=== PATIENT | female | born 1930 | race Caucasian/White ===

== ENCOUNTER 2017-08-22 14:14 | Inpatient (IN) ==
[2017-08-22] MEDS ORDERED: Naloxone 0.4 MG/ML INJ IVP PRN ×2 (21:40→21:41)
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
[2017-08-22 22:28] LABS: Basophils # 0.1 K/mcL (0.0-0.2); Basophils % 0.4 %; Eosinophils % 0.3 %; Hematocrit 41.4 % (35.3-44.9); Hemoglobin 13.3 g/dL (11.5-15.4); Immature Granulocytes % 0.3 % (0-4); Lymphocytes # 2.4 K/mcL (0.6-4.6); Lymphocytes % 19.2 %; Mean Corpuscular HGB Conc 32.1 g/dL (31.6-35.5); Mean Corpuscular Hemoglobin 28.4 pg (28.0-33.3); Mean Corpuscular Volume 88.5 fL (83.0-100.0); Mean Platelet Volume 9.9 fL (9.4-12.4); Monocytes # 0.7 K/mcL (0.0-1.3); Monocytes % 5.5 %; Neutrophils # 9.3 K/mcL (1.6-8.9); Platelet Count 188 K/mcL (140-400); Red Blood Count 4.68 M/mcL (3.82-4.97); Red Cell Distribution Width 13.2 % (11.5-14.5); Segmented Neutrophils % 74.3 %
[2017-08-22 22:34] LABS: INR 1.1; Prothrombin Time 11.9 Seconds (9.4-12.1)
[2017-08-22 22:48] LABS: Alanine Aminotransferase 159 Units/L (7-52); Albumin 3.9 g/dL (3.5-5.7); Albumin/Globulin Ratio 1.4 (1.1-2.2); Alkaline Phosphatase 110 Units/L (34-104); Aspartate Amino Transferase 198 Units/L (13-39); BUN/Creatinine Ratio 23 (6-26); Bilirubin,Total 1.5 mg/dL (0.3-1.0); Blood Urea Nitrogen 17 mg/dL (8-23); Calcium 9.4 mg/dL (8.6-10.3); Carbon Dioxide 29 mEq/L (23-29); Chloride 103 mEq/L (98-107); Globulin 2.8 g/dL (2.4-3.5); Glucose 129 mg/dL (70-105); Osmolality,Calculated 289 (280-300); Potassium 3.5 mEq/L (3.5-5.1); Sodium 138 mEq/L (136-145); Total Protein 6.7 g/dL (6.4-8.9); eGFR For African Americans > 60 (> 60); eGFR For Non-African Americans > 60 (> 60)
[2017-08-22] MEDS: *HR* HYDROcodone/Acet 5/325 mg TABLET PO PRN (23:39)
[2017-08-22] MEDS: *HR* Heparin 5,000 UNIT/ML VIAL SQ SCH (23:41)
[2017-08-23 00:40] LABS: Bilirubin,Urine Negative (Negative); Blood,Urine Large (Negative); Clarity,Urine Clear (Clear); Color,Urine Yellow (Yellow); Glucose,Urine (UA) Normal (Normal); Ketones,Urine Negative (Negative); Leukocyte Esterase,Urine Negative (Negative); Nitrite,Urine Negative (Negative); Protein,Urine 30 mg/dL (Neg-Trace); Specific Gravity,Urine 1.022 (1.010-1.025); Urobilinogen,Urine Normal (Normal)
[2017-08-23 00:42] LABS: Bacteria,Urine None Seen per hpf (None-Few); Hyaline Casts,Urine None Seen per lpf (None-Few); RBC,Urine TNTC per hpf (0-3); Squamous Epithelial Cell,Urine Many per lpf (None-Few)
[2017-08-23 02:24] LABS: BUN/Creatinine Ratio 27 (6-26); Blood Urea Nitrogen 17 mg/dL (8-23); Calcium 9.1 mg/dL (8.6-10.3); Carbon Dioxide 27 mEq/L (23-29); Chloride 104 mEq/L (98-107); Glucose 121 mg/dL (70-105); Osmolality,Calculated 287 (280-300); Potassium 3.8 mEq/L (3.5-5.1); Sodium 137 mEq/L (136-145); eGFR For African Americans > 60 (> 60); eGFR For Non-African Americans > 60 (> 60)
[2017-08-23 02:57] LABS: INR 1.1; Prothrombin Time 12.2 Seconds (9.4-12.1)
[2017-08-23 03:08] LABS: Basophils # 0.1 K/mcL (0.0-0.2); Basophils % 0.6 %; Eosinophils # 0.2 K/mcL (0.0-0.6); Eosinophils % 1.3 %; Hematocrit 38.9 % (35.3-44.9); Hemoglobin 12.6 g/dL (11.5-15.4); Immature Granulocytes % 0.7 % (0-4); Lymphocytes # 2.8 K/mcL (0.6-4.6); Lymphocytes % 22.5 %; Mean Corpuscular HGB Conc 32.4 g/dL (31.6-35.5); Mean Corpuscular Hemoglobin 28.6 pg (28.0-33.3); Mean Corpuscular Volume 88.2 fL (83.0-100.0); Mean Platelet Volume 10.3 fL (9.4-12.4); Monocytes # 0.8 K/mcL (0.0-1.3); Monocytes % 6.3 %; Neutrophils # 8.6 K/mcL (1.6-8.9); Platelet Count 193 K/mcL (140-400); Red Blood Count 4.41 M/mcL (3.82-4.97); Red Cell Distribution Width 13.1 % (11.5-14.5); Segmented Neutrophils % 68.6 %
[2017-08-23] MEDS: *HR* Heparin 5,000 UNIT/ML VIAL SQ SCH ×2 (05:26→12:55)
[2017-08-23] MEDS: *HR* HYDROcodone/Acet 5/325 mg TABLET PO PRN ×2 (05:27→12:10)
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
[2017-08-23] MEDS ORDERED: hydroCHLOROthiazide 25 MG TABLET PO SCH (09:00)
--- NOTE | 2017-08-23 09:37 | Internal Med Progress Note ---
Date of Encounter: 08/23/17 Time of Encounter: 08:50 - Assessment and plan (1) Femoral fracture Current Visit: Yes Status: Acute Assessment and plan: Pt with acute hip fracture. To go to OR today for repair. I reviewed EKG - nonspecific changes. Pt moderate risk for low risk procedure. Qualifiers: Encounter type: subsequent encounter Femur location: head Fracture type: closed Laterality: right Fracture healing: with routine healing Qualified Code(s): S72.051D - Unspecified fracture of head of right femur, subsequent encounter for closed fracture with routine healing (2) Dementia Current Visit: Yes Status: Acute Assessment and plan: Continue previous meds. Supportive care. Qualifiers: Dementia type: Alzheimer's disease Alzheimer's disease onset: late-onset Dementia behavioral disturbance: without behavioral disturbance Qualified Code (s): G30.1 - Alzheimer's disease with late onset; F02.80 - Dementia in other diseases classified elsewhere without behavioral disturbance; F02.80 - Dementia in other diseases classified elsewhere without behavioral disturbance; F02.80 - Dementia in other diseases classified elsewhere without behavioral disturbance (3) Hypertension Current Visit: Yes Status: Acute Assessment and plan: Resume home antihypertensives Qualifiers: Hypertension type: essential hypertension Qualified Code(s): I10 - Essential (primary) hypertension (4) DVT prophylaxis Current Visit: Yes Status: Acute Assessment and plan: Heparin subcutaneous - Time Spent With Patient Total time spent is greater than 50% in coordination of care (as documented) at patient's floor/unit and/or counseling patient: - Subjective Interval history: Ms Jerry is currently admitted for R hip fracture. She is to go to OR today. She remains moderate to high risk due to potential for worsening clinical status. Ms Jerry is very agitated. She is trying to get out of bed. No fever. No CP or SOB. - Constitutional Vitals: Temp Pulse Resp BP Pulse Ox 98.4 F 81 16 145/81 93 08/23/17 06:56 08/23/17 06:56 08/23/17 06:56 08/23/17 06:56 08/23/17 06:56 General appearance: Present: A&O X 1 - Head Head exam: Present: normocephalic - Eye Eye exam: Present: conjuntiva pink - ENT ENT exam: Present: mucous membranes dry - Respiratory Respiratory exam: Present: CTAB. Absent: rales, rhonchi, wheezes - Cardiovascular Cardiovascular exam: Present: RRR. Absent: tachycardia - GI/Abdominal GI/Abdominal exam: Present: soft. Absent: tenderness - Extremities Exam Extremities exam: Present: warm - Neurological Exam Neurological exam: Present: alert. Absent: facial droop, speech deficit - Skin Skin exam: Present: dry, warm Internal Medicine: Result - Labs CBC & Chem 7: 08/23/17 01:45 08/23/17 01:45 Labs: Short CBC 08/22/17 08/23/17 Range/Units 22:16 01:45 WBC 12.5 H 12.5 H (4.3-11.1) K/mcL Hgb 13.3 12.6 (11.5-15.4) g/dL Hct 41.4 38.9 (35.3-44.9) % Plt Count 188 193 (140-400) K/mcL Neutrophils # 9.3 H 8.6 (1.6-8.9) K/mcL BMP 08/22/17 08/23/17 22:16 01:45 Sodium 138 137 Potassium 3.5 3.8 Chloride 103 104 Carbon Dioxide 29 27 BUN 17 17 Creatinine 0.74 0.64 Glucose 129 H 121 H Calcium 9.4 9.1 Liver Function 08/22/17 Range/Units 22:16 Total Bilirubin 1.5 H (0.3-1.0) mg/dL AST 198 H (13-39) Units/L ALT 159 H (7-52) Units/L Alkaline Phosphatase 110 H (34-104) Units/L Albumin 3.9 (3.5-5.7) g/dL Urine 08/23/17 Range/Units 00:12 Urine Color Yellow (Yellow) Urine Clarity Clear (Clear) Urine pH 7.0 (5.0-8.0) pH Units Ur Specific [place] 1.022 (1.010-1.025) Urine Protein 30 H (Neg-Trace) mg/dL Urine Glucose (UA) Normal (Normal) mg/dL - ABG Interpretation ABG results: PT/INR, D-dimer PT 12.2 Seconds (9.4-12.1) H 08/23/17 01:45 Consult Discharge Plan - Plan Referrals: NONE,PCP [Primary Care Provider] -
--- NOTE | 2017-08-23 13:25 | Anesthesia Evaluation PreOp ---
Date of Encounter: 08/23/17 Time of Encounter: 14:00 - Past History Planned Operation: R-Braulio Hip re: R-Femoral Head Fx Cardiac History: HTN Pulmonary History: Denies Any Significant HX MANAGER GYN History: Other (AlzheimersDementia) Other Medical History: Thyroid, Other (Colon Cancer s/p small bowel resection, partial gastrectomy. Recent Lupus diagnosis that pt reportedly wont allow to be treated.) Anesthesia History: No Prior Anesthetic Complications, Past Anesthesia (Small bowl resection re: Colon Ca, Letty) : No Test: Negative Drug use: none Medications and Allergies Acetaminophen [Tylenol] 650 mg PO Q6HR PRN 08/22/17 [History] DiphenhydraMINE [Benadryl] 25 mg PO HS 08/22/17 [History] Donepezil [Aricept] 10 mg PO HS 08/22/17 [History] Potassium Chloride [K-Tab ER] 20 meq PO QDPC 08/22/17 [History] Quetiapine Fumarate [SEROquel] 12.5 mg PO 1600 08/22/17 [History] Quetiapine Fumarate [SEROquel] 25 mg PO BID 08/22/17 [History] hydroCHLOROthiazide [Hydrochlorothiazide] 25 mg PO DAILY 08/22/17 [History] 3 Allergy/AdvReac Type Severity Reaction Status Date / Time divalproex sodium AdvReac See Verified 08/22/17 16:49 [From Depakote] Comments - Meds/Allergy Pre-op Review Medications Reviewed: Yes Allergies Reviewed: Yes Beta Blockers on Current Med List: No Anesthesia Results - Labs 08/23/17 01:45 08/23/17 01:45 Laboratory Tests 08/23/17 08/23/17 01:45 01:45 PT 12.2 H INR 1.1 Sodium 137 Potassium 3.8 Chloride 104 Carbon Dioxide 27 BUN 17 Creatinine 0.64 Est GFR (Non-Af Amer) > 60 Glucose 121 H - Imaging EKG: image reviewed (86bpm SR, non-specific T-wave abnormality) Anesthesia Exam Vital Signs Temp Pulse Resp BP Pulse Ox 08/23/17 11:26 97.9 F 89 17 151/72 92 08/23/17 06:56 98.4 F 81 16 145/81 93 08/23/17 04:48 97.8 F 78 18 130/72 95 08/22/17 23:38 97.9 F 88 18 135/77 93 08/22/17 19:55 98.9 F 92 16 154/83 93 08/22/17 16:31 98.4 F 98 16 165/81 98 Intake and Output 08/22/17 08/23/17 08/23/17 23:59 07:59 15:59 Intake Total 0 / 0 0 / 0 Output Total 825 / 825 300 / 300 500 / 500 Balance -825 / -825 -300 / -300 -500 / -500 Intake: Oral 0 / 0 0 / 0 Output: Catheter 825 / 825 300 / 300 500 / 500 Urethral (Senior) 500 / 500 Other: Weight 47 kg 48.2 kg Patient Weight 08/23/17 23:59 Weight 48.2 kg Height: 5'5" Weight: 106# BMI = 17.7 NPO (# of Hours): MNOc - HEENT Pupil (Motor): Pupils equal, EOMI Mallampati: II Teeth: Normal Oral Opening: Greater than 3 - MANAGER GYN LOC: Oriented MANAGER GYN Motor: Normal RUE, Normal LUE, Normal RLE, Normal LLE, Normal Face MANAGER GYN Sensory: Normal: RUE, LUE, RLE, LLE, Face - Cardiac Rhythm: Regular Murmur: None JVD: No - Pulmonary Breath Sounds: bilateral Clear Respiratory Effort: Symmetrical Anesthesia Assess/Plan ASA Score: 3 (Dementia,) Modified Rosemarie Scale for Level of Consciousness: Cooperative, oriented, and tranquil Anesthetic Plan: General Monitoring Plan: Standard Monitors Recovery Plan: PACU Anes Supervising Prov Stmt: Pt seen/evaluated, R&B discussed, questions answered and consent obtained from Legal Guardian - MD Fernanda Legal Guardian- Kiana Livingston [phone]
[2017-08-23] MEDS ORDERED: Vancomycin 1,000 MG VIAL ONE (14:12)
[2017-08-23] MEDS ORDERED: Ethanol\\Acetic Acid\\Na Ace\\Ben 1,000 ML IRRIG.SOLN IR ONE (14:19)
[2017-08-23] MEDS ORDERED: Morphine Sulfate/PF 5mg/10mL Vial ONE (14:54)
[2017-08-23] MEDS ORDERED: *HR* FentaNYL (PF) 100 MCG/2 ML VIAL ONE ×3 (15:19→17:09)
[2017-08-23] MEDS ORDERED: *HR* PHENYLEPHRINE 1,000 MCG/10 ML SYRINGE IVP ONE (15:20)
[2017-08-23] MEDS ORDERED: *HR* Etomidate 40 MG/20 ML VIAL IVP ONE (15:43)
[2017-08-23] MEDS ORDERED: *HR* Succinylcholine 200 MG/10 ML VIAL IVP ONE (15:47)
[2017-08-23] MEDS ORDERED: Lidocaine -MPF 2% 2 ML VIAL ONE (15:47)
[2017-08-23] MEDS ORDERED: *HR* Rocuronium Bromide 50 MG/5 ML VIAL ONE (16:01)
[2017-08-23] MEDS ORDERED: *HR* OxyCODONE Immed Rel 5 MG TABLET PO PRN ×2 (16:37→18:54)
[2017-08-23] MEDS ORDERED: *HR* Labetalol 100 MG/20 ML MDV IVP PRN ×2 (16:37→18:54)
[2017-08-23] MEDS ORDERED: EPHEDrine 50 MG/ML VIAL ONE (16:38)
[2017-08-23] MEDS ORDERED: MORPHINE SUL Oral CONC 10 MG/0.5 ML ORAL.SYG SL SCH (16:45)
[2017-08-23] MEDS ORDERED: Neostigmine Methylsulfate 3 MG/3 ML SYRINGE ONE (16:48)
[2017-08-23] MEDS ORDERED: Esmolol 100 MG/10 ML VIAL IVP ONE (17:05)
--- NOTE | 2017-08-23 17:36 | Orthopedic Operative Note ---
Date of procedure: 08/23/17 Procedure: OPERATIVE REPORT DATE OF PROCEDURE: 08/23/2017 SURGEON: Terrence Zepeda MD ACCOUNT ASSOCIATE(S): There were no assistants PREOPERATIVE DIAGNOSIS: Right displaced femoral neck fracture POSTOPERATIVE DIAGNOSIS: Right displaced femoral neck fracture PROCEDURE: Right hip hemiarthroplasty ANESTHESIA: Gen. anesthesia PREOPERATIVE ANTIBIOTICS: 2 g of Ancef ESTIMATED BLOOD LOSS: 100 milliliters SPECIMENS: Right femoral head IMPLANTS: Biomet Echo Fracture stem size 9 with standard offset; 46 Vipolar Head ; 28 standard Taper PREOPERATIVE NOTE AND INDICATIONS: This patient is an 87-year-old female with a right displaced femoral neck fracture. Recommendation was for the above procedure in order to achieve pain relief and help facilitate nursing care The surgical plan was discussed with the power of attorney law clerk. The risks, benefits , alternatives, and potential complications of this procedure were discussed with the patient including injury to veins, arteries, nerves, tendons, ligaments , and bone. Also discussed were the risks of infection, bleeding, pain, blood clots, the possible need for a blood transfusion, the possible need for further procedures, heart attack, stroke, and . Additional risks include anesthetic dislocation, fracture, prosthetic infection, and the need for further procedures. All of this was explained in simple terms, and the power of attorney law clerk verbalized understanding and wished to proceed. Consent was given to proceed with surgery. PROCEDURE: The patient was seen in the preoperative holding area where the identify and the consent were confirmed. The right hip was marked. Final questions were answered. The patient was brought back to the operating room. A huddle was performed with the patient and all vital surgical team members confirming patient identity, the correct procedure, and the correct operative site. General anesthesia was administered. The patient was placed supine on the operating room table and then placed in the left lateral decubitus position. The axillary roll was placed and all bony prominences were padded. The right lower extremity was prepped and draped in the usual sterile fashion. A surgical time out was performed immediately preceding the incision with all personnel in the operating room to confirm patient identity, the correct operative site and extremity, correct radiographic studies, availability of appropriate surgical equipment, and agreement on the planned procedure. A 15 cm longitudinal curvilinear incision was made and dissection proceeded through the subcutaneous tissue using a Bovie for electrocautery. The fascia was encountered and incised splitting the fibers of the gluteus malia proximally. The Charnley retractor was placed. A Cobra was placed under the gluteus medius and the piriformis was taken down and tagged. While internally rotating the femur the short external rotators and the capsule was taken down in 1 sleeve. This exposed the fracture and an osteotomy was made 1 cm above the lesser trochanter. The femoral head was removed with a corkscrew. Pulvinar and the round ligament were debrided. The cartilage of the acetabulum was intact. The femoral head was sized and the 46 mm sizer fit appropriately. The femoral shaft was elevated and a box osteotome was used to lateralize. The canal finder was used and shaft reaming went up to a size 9. Broaching commenced and the 9 broach fit nicely and had good rotational stability. The trial head and neck were placed and the hip was articulated and felt to be accurate length. The hip was stable through a functional range of motion. The hip was disarticulated and the trial components were removed. The hip was washed with 3 L of saline. The definitive stem was tapped into position, and the definitive head was impacted onto the Lane taper. The hip was articulated and noted to be stable through a functional range of motion. After final irrigation with Irricept and Bactisure, 1 g of vancomycin powder was placed into the hip joint and the capsule was closed with FiberWire stitches through drill holes in the greater trochanter and the piriformis was repaired to the gluteus medius insertion. The Charnley retractor was removed and the wound was irrigated and the fascia closed with 0 Fiberwire and 0 Vicryl stitches. The skin was closed with a combination of 0 Vicryl, 3-0 Vicryl, and angelina. A sterile honeycomb dressing was applied. The patient was placed supine in her hospital bed. The instrument, sponge, and needle counts were correct after wound closure. POST OPERATIVE PLAN: Weight Bearing: Weightbearing as tolerated to bilateral lower extremities DVT Prophylaxis: Aspirin 325 mg by mouth twice a day Activity: Activities as tolerated with the assistance of therapy Wound Care: Keep the dressing clean, dry, and intact. Pain Control: Per the hospitalist Perioperative antibiotic prophylaxis: 2 g of Ancef 2 doses Social work for discharge planning Follow Up: 2 weeks Was there an dental front office assistant present: No Estimated blood loss (cc): 100
[2017-08-23] MEDS ORDERED: Haloperidol Lactate 5 MG/ML VIAL IVP ONE (18:15)
[2017-08-23] MEDS ORDERED: Ketorolac 30 MG/ML VIAL IVP ONE (18:16)
[2017-08-23] MEDS ORDERED: Ringers Solution, Lactated 1,000 ML ONE (18:22)
[2017-08-23] MEDS ORDERED: Acetaminophen IV 1,000 MG/100 ML INFUS..BTL IVPB ONE (18:24)
[2017-08-23] MEDS ORDERED: Naloxone 0.4 MG/ML INJ IVP PRN (18:54)
[2017-08-23] MEDS ORDERED: MORPHINE SUL Oral CONC 10 MG/0.5 ML ORAL.SYG SL PRN (18:54)
--- NOTE | 2017-08-23 19:17 | Anesthesia Evaluation Post Op ---
Date of Encounter: 08/23/17 Time of Encounter: 18:44 - Vital Signs Vital Signs: Last Vital Signs Temp 99.7 F H 08/23/17 18:55 Pulse 117 08/23/17 18:55 Resp 18 08/23/17 18:55 BP 105/63 08/23/17 18:55 Pulse Ox 95 08/23/17 18:55 - Lungs Lungs: Clear Ascult./Percussion - Airway Airway: Non-obstructed - Cardiovascular Regular Rate, Baseline Rhythm - Mental Status Mental Status: Confused, Baseline Status - Pain Pain Scale used: Unable to assess - Nausea Vomiting Nausea Vomiting: Not Present - Hydration Hydration: NPO - Discharge PostOp Status: Transfer Patient to floor
[2017-08-23] MEDS: Aspirin Enteric Coated 325 MG Tablet PO SCH (22:28)
[2017-08-23] MEDS: CeFAZolin Pre 2,000 MG/100 ML 2,000 MG/100 ML BAG IVPB SCH (23:42)
[2017-08-24 02:33] LABS: Hematocrit 34.5 % (35.3-44.9); Mean Corpuscular HGB Conc 31.9 g/dL (31.6-35.5); Mean Corpuscular Hemoglobin 28.5 pg (28.0-33.3); Mean Corpuscular Volume 89.4 fL (83.0-100.0); Mean Platelet Volume 10.8 fL (9.4-12.4); Platelet Count 169 K/mcL (140-400); Red Blood Count 3.86 M/mcL (3.82-4.97); Red Cell Distribution Width 13.2 % (11.5-14.5)
[2017-08-24 02:55] LABS: BUN/Creatinine Ratio 20 (6-26); Blood Urea Nitrogen 20 mg/dL (8-23); Calcium 8.5 mg/dL (8.6-10.3); Carbon Dioxide 28 mEq/L (23-29); Chloride 103 mEq/L (98-107); Glucose 111 mg/dL (70-105); Osmolality,Calculated 291 (280-300); Potassium 4.2 mEq/L (3.5-5.1); Sodium 139 mEq/L (136-145); eGFR For African Americans > 60 (> 60); eGFR For Non-African Americans 53 (> 60)
[2017-08-24] MEDS: *HR* HYDROcodone/Acet 5/325 mg TABLET PO PRN ×3 (03:22→23:50)
[2017-08-24] MEDS: Aspirin Enteric Coated 325 MG Tablet PO SCH ×2 (07:26→21:28)
[2017-08-24] MEDS: hydroCHLOROthiazide 25 MG TABLET PO SCH (07:26)
[2017-08-24] MEDS: CeFAZolin Pre 2,000 MG/100 ML 2,000 MG/100 ML BAG IVPB SCH (07:26)
--- NOTE | 2017-08-24 15:54 | Internal Med Progress Note ---
Date of Encounter: 08/24/17 Time of Encounter: 15:52 - Assessment and plan (1) Femoral fracture Current Visit: Yes Status: Acute Assessment and plan: Right femoral neck fracture status post Right hip hemiarthroplasty Followed by orthopedic surgery ECF placement in the morning if stable Qualifiers: Encounter type: subsequent encounter Femur location: head Fracture type: closed Laterality: right Fracture healing: with routine healing Qualified Code(s): S72.051D - Unspecified fracture of head of right femur, subsequent encounter for closed fracture with routine healing (2) Dementia Current Visit: Yes Status: Acute Assessment and plan: Continue previous meds. Supportive care. Qualifiers: Dementia type: Alzheimer's disease Alzheimer's disease onset: late-onset Dementia behavioral disturbance: without behavioral disturbance Qualified Code (s): G30.1 - Alzheimer's disease with late onset; F02.80 - Dementia in other diseases classified elsewhere without behavioral disturbance; F02.80 - Dementia in other diseases classified elsewhere without behavioral disturbance; F02.80 - Dementia in other diseases classified elsewhere without behavioral disturbance (3) Hypertension Current Visit: Yes Status: Acute Assessment and plan: Continue hydrochlorothiazide Qualifiers: Hypertension type: essential hypertension Qualified Code(s): I10 - Essential (primary) hypertension (4) DVT prophylaxis Current Visit: Yes Status: Acute Assessment and plan: Aspirin twice a day (5) Transaminitis Current Visit: Yes Status: Acute Assessment and plan: Recheck LFTs in the morning Order ultrasound (6) Acute blood loss as cause of postoperative anemia Current Visit: Yes Status: Acute Assessment and plan: Recheck in the morning Start omeprazole and order Hemoccult - Time Spent With Patient Total time spent is greater than 50% in coordination of care (as documented) at patient's floor/unit and/or counseling patient: - Subjective Interval history: demented, unable to complete review of systems, appears to be in no distress, denies any pain - Constitutional Vitals: Temp Pulse Resp BP Pulse Ox 98.5 F 93 16 95/59 96 08/24/17 11:00 08/24/17 11:00 08/24/17 11:00 08/24/17 11:00 08/24/17 11:00 General appearance: Present: A&O X 1 - Head Head exam: Present: atraumatic, normocephalic - Eye Eye exam: Present: PERRL, conjuntiva pink, sclera anicteric Pupils: Present: PERRL - Neck Neck exam general surgery: Present: supple, trachea midline. Absent: lymphadenopathy - Respiratory Respiratory exam: Present: CTAB. Absent: accessory muscle use, rales, rhonchi, wheezes - Cardiovascular Cardiovascular exam: Present: RRR, +S1, +S2. Absent: diastolic murmur, gallop, rubs, systolic murmur - GI/Abdominal GI/Abdominal exam: Present: normal bowel sounds, soft, no peritoneal signs. Absent: distended, tenderness - Extremities Exam Extremities exam: Present: warm, radial pulses palpable and symmetrical. Absent : calf tenderness, cyanotic, pedal edema - Neurological Exam Neurological exam: Present: CN II-XII intact, no focal deficits. Absent: oriented X3, pronater drift, facial droop, speech deficit Additional comments: Pupils are pinpointed, slowly reactive Right hip wound appears clean without signs of infection or hematoma - Skin Skin exam: Present: dry, intact Internal Medicine: Result - Labs CBC & Chem 7: 08/24/17 01:26 08/24/17 01:26 Labs: Short CBC 08/24/17 Range/Units 01:26 WBC 14.4 H (4.3-11.1) K/mcL Hgb 11.0 L D (11.5-15.4) g/dL Hct 34.5 L (35.3-44.9) % Plt Count 169 (140-400) K/mcL BMP 08/24/17 01:26 Sodium 139 Potassium 4.2 Chloride 103 Carbon Dioxide 28 BUN 20 Creatinine 0.98 Glucose 111 H Calcium 8.5 L - ABG Interpretation ABG results: PT/INR, D-dimer PT 12.2 Seconds (9.4-12.1) H 08/23/17 01:45 - VTE Documentation of Mechanical Device: Venous foot pump, device Consult Discharge Plan - Plan Referrals: NONE,PCP [Primary Care Provider] -
--- NOTE | 2017-08-24 16:33 | Orthopedics Progress Note ---
Date of Encounter: 08/24/17 Time of Encounter: 06:30 - Assessment and Plan (1) Femoral fracture Current Visit: Yes Status: Acute Qualifiers: Encounter type: subsequent encounter Femur location: head Fracture type: closed Laterality: right Fracture healing: with routine healing Qualified Code(s): S72.051D - Unspecified fracture of head of right femur, subsequent encounter for closed fracture with routine healing Subjective Interval history: S: Resting in bed comfortably Took out her abduction pillow Took off her dressing O: AFVSS Dementia Incision is C/D/I Redressed Mild pain with hip PROM Flexes and extends the toes X-rays show good position of the hip venkat A: Post Right hip venkat, doing well P: PT/OT when able Senior out Asa 325 PO BID for dvt prophylaxis Dressing change tomorrow Objective Vital signs: Vital Signs Temp Pulse Resp BP Pulse Ox 08/24/17 16:18 98.3 F 99 16 108/77 94 08/24/17 11:00 98.5 F 93 16 95/59 96 08/24/17 06:20 98.8 F 86 16 123/62 98 08/24/17 03:25 97.9 F 65 16 118/65 96 08/23/17 23:41 101 99/55 08/23/17 23:19 97.9 F 82 14 86/46 95 08/23/17 21:52 98.9 F 92 15 98/67 94 08/23/17 20:52 99 F 100 16 94/63 94 08/23/17 19:57 109 16 102/63 93 08/23/17 19:42 99.5 F 104 15 87/55 92 08/23/17 18:55 99.7 F H 117 18 105/63 95 08/23/17 18:37 99.4 F 117 14 126/74 92 08/23/17 18:27 99.4 F 124 14 175/99 90 08/23/17 18:17 129 16 176/111 94 08/23/17 18:07 129 18 150/103 94 08/23/17 17:57 99.5 F 118 16 151/103 94 08/23/17 17:47 133 20 155/97 93 08/23/17 17:37 121 20 130/89 96 08/23/17 17:27 98.7 F 104 22 144/98 96 Intake and Output 08/24/17 08/24/17 08/24/17 07:59 15:59 23:59 Intake Total 200 / 200 650 / 650 Output Total 350 / 350 0 / 0 Balance -150 / -150 650 / 650 0 / 0 Intake: IV Fluids 200 / 200 Ofirmev 1,000 mg/100 ml 1,000 100 / 100 mg In 100 ml @ 400 mls/hr IVPB ONCE ONE Rx#:[id number] Ancef Premix 2,000 MG/100 ML 2, 100 / 100 000 mg In 100 ml @ 200 mls/hr IVPB Q8HR MATT Rx#:[id number] Oral 650 / 650 Output: Urine 0 / 0 Catheter 350 / 350 Other: Meal Lunch Percent of Meal Consumed 0% - Labs CBC & BMP: 08/24/17 01:26 08/24/17 01:26 Labs: Abnormal lab results WBC 14.4 K/mcL (4.3-11.1) H 08/24/17 01:26 Hgb 11.0 g/dL (11.5-15.4) L D 08/24/17 01:26 Hct 34.5 % (35.3-44.9) L 08/24/17 01:26 PT 12.2 Seconds (9.4-12.1) H 08/23/17 01:45 Est GFR (Non-Af Amer) 53 (> 60) L 08/24/17 01:26 Glucose 111 mg/dL (70-105) H 08/24/17 01:26 Calcium 8.5 mg/dL (8.6-10.3) L 08/24/17 01:26 Total Bilirubin 1.5 mg/dL (0.3-1.0) H 08/22/17 22:16 AST 198 Units/L (13-39) H 08/22/17 22:16 ALT 159 Units/L (7-52) H 08/22/17 22:16 Alkaline Phosphatase 110 Units/L (34-104) H 08/22/17 22:16 Urine Protein 30 mg/dL (Neg-Trace) H 08/23/17 00:12 Urine Blood Large (Negative) H 08/23/17 00:12 Urine Microscopic RBC TNTC per hpf (0-3) H 08/23/17 00:12 Urine Microscopic WBC 3-5 per hpf (0-3) H 08/23/17 00:12 Ur Squamous Epith Cells Many per lpf (None-Few) H 08/23/17 00:12 - VTE Documentation of Mechanical Device: Venous foot pump, device Consult Discharge Plan - Plan Referrals: NONE,PCP [Primary Care Provider] -
--- NOTE | 2017-08-24 16:35 | Electrocardiograph Report ---
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
[2017-08-24] MEDS: 0.9 % Sodium Chloride 1,000 ML IVC SCH (16:45)
--- NOTE | 2017-08-24 19:35 | Event Note ---
Date of Encounter: 08/24/17 Time of Encounter: 19:19 Alerted by pts. nurse JACQUELINE Ledezma that the pts. troponin was 0.11. Pt. had been c/ o CP earlier. Two more troponins ordered for 00:30 and 06:30. Continuous cardiac telemetry ordered. Pt. is post-hip surgery one day and also has increasing WBC which has increased from 12.5 on 08/22 to 14.4 today. Blood cultures x2 and CXR ordered to assess for possible infection process. Stat lactic acid ordered. Pts. HR of 106 and WBC of [address]4 [address] her as sepsis criteria so pt. to be monitored closely. Currently afebrile and RR WNL.
[2017-08-25 00:57] LABS: Hematocrit 28.5 % (35.3-44.9); Mean Corpuscular HGB Conc 32.6 g/dL (31.6-35.5); Mean Corpuscular Hemoglobin 29.2 pg (28.0-33.3); Mean Corpuscular Volume 89.3 fL (83.0-100.0); Mean Platelet Volume 10.3 fL (9.4-12.4); Red Blood Count 3.19 M/mcL (3.82-4.97); Red Cell Distribution Width 13.1 % (11.5-14.5)
[2017-08-25 01:02] LABS: Hemoglobin 9.3 g/dL (11.5-15.4)
[2017-08-25 01:43] LABS: Alanine Aminotransferase 86 Units/L (7-52); Albumin 2.8 g/dL (3.5-5.7); Albumin/Globulin Ratio 1.2 (1.1-2.2); Alkaline Phosphatase 133 Units/L (34-104); Aspartate Amino Transferase 66 Units/L (13-39); BUN/Creatinine Ratio 27 (6-26); Bilirubin,Total 1.5 mg/dL (0.3-1.0); Blood Urea Nitrogen 17 mg/dL (8-23); Calcium 7.9 mg/dL (8.6-10.3); Carbon Dioxide 24 mEq/L (23-29); Chloride 102 mEq/L (98-107); Globulin 2.4 g/dL (2.4-3.5); Glucose 127 mg/dL (70-105); Osmolality,Calculated 283 (280-300); Potassium 2.9 mEq/L (3.5-5.1); Sodium 135 mEq/L (136-145); Total Protein 5.2 g/dL (6.4-8.9); eGFR For African Americans > 60 (> 60); eGFR For Non-African Americans > 60 (> 60)
[2017-08-25] MEDS ORDERED: Potassium Chloride 40 MEQ, Lidocaine 1% 2 ML in D5% in Water 500 ML IVPB ONE (04:00)
[2017-08-25] MEDS: 0.9 % Sodium Chloride 1,000 ML IVC SCH (09:07)
[2017-08-25] MEDS: Aspirin Enteric Coated 325 MG Tablet PO SCH ×2 (09:09→20:57)
[2017-08-25] MEDS: hydroCHLOROthiazide 25 MG TABLET PO SCH (09:09)
--- NOTE | 2017-08-25 10:22 | Internal Med Progress Note ---
Date of Encounter: 08/25/17 Time of Encounter: 10:20 - Assessment and plan (1) Acute blood loss as cause of postoperative anemia Current Visit: Yes Status: Acute Assessment and plan: SIRS Recheck HH later today and in the morning Started omeprazole and order Hemoccult No BMs , no evidence of bleeding may transfuse if needed repeat UA CXR did not show any acute cardiopulmonary disease (2) Femoral fracture Current Visit: Yes Status: Acute Assessment and plan: Right femoral neck fracture status post Right hip hemiarthroplasty Followed by orthopedic surgery ECF placement when stable Qualifiers: Encounter type: subsequent encounter Femur location: head Fracture type: closed Laterality: right Fracture healing: with routine healing Qualified Code(s): S72.051D - Unspecified fracture of head of right femur, subsequent encounter for closed fracture with routine healing (3) Dementia Current Visit: Yes Status: Acute Assessment and plan: Continue previous meds. Supportive care. Qualifiers: Dementia type: Alzheimer's disease Alzheimer's disease onset: late-onset Dementia behavioral disturbance: without behavioral disturbance Qualified Code (s): G30.1 - Alzheimer's disease with late onset; F02.80 - Dementia in other diseases classified elsewhere without behavioral disturbance; F02.80 - Dementia in other diseases classified elsewhere without behavioral disturbance; F02.80 - Dementia in other diseases classified elsewhere without behavioral disturbance (4) Hypertension Current Visit: Yes Status: Acute Assessment and plan: hold hydrochlorothiazide due to hypokalemia Qualifiers: Hypertension type: essential hypertension Qualified Code(s): I10 - Essential (primary) hypertension (5) DVT prophylaxis Current Visit: Yes Status: Acute Assessment and plan: Aspirin twice a day (6) Transaminitis Current Visit: Yes Status: Acute Assessment and plan: LFTs trending down Ultrasound of the abdomen showed: Gallbladder is not visualized and may be surgically absent or collapsed. Common bile duct measures up to 9 mm which may be normal if there is history of cholecystectomy. (7) Hypokalemia Current Visit: Yes Status: Acute Assessment and plan: replete - Time Spent With Patient Total time spent is greater than 50% in coordination of care (as documented) at patient's floor/unit and/or counseling patient: - Subjective Interval history: No evidence of bleeding, denies CP today. demented, unable to complete review of systems, appears to be in no distress, denies any pain - Constitutional Vitals: Temp Pulse Resp BP Pulse Ox 98.5 F 76 16 128/73 95 08/25/17 06:51 08/25/17 06:51 08/25/17 06:51 08/25/17 06:51 08/25/17 07:45 General appearance: Present: A&O X 1 Exam: - Head Head exam: Present: atraumatic, normocephalic - Eye Eye exam: Present: PERRL, conjuntiva pink, sclera anicteric Pupils: Present: PERRL - Neck Neck exam general surgery: Present: supple, trachea midline. Absent: lymphadenopathy - Respiratory Respiratory exam: Present: CTAB. Absent: accessory muscle use, rales, rhonchi, wheezes - Cardiovascular Cardiovascular exam: Present: RRR, +S1, +S2. Absent: diastolic murmur, gallop, rubs, systolic murmur - GI/Abdominal GI/Abdominal exam: Present: normal bowel sounds, soft, no peritoneal signs. Absent: distended, tenderness - Extremities Exam Extremities exam: Present: warm, radial pulses palpable and symmetrical. Absent : calf tenderness, cyanotic, pedal edema - Neurological Exam Neurological exam: Present: CN II-XII intact, no focal deficits. Absent: oriented X3, pronater drift, facial droop, speech deficit Additional comments: Pupils are pinpointed, slowly reactive Right hip wound appears clean without signs of infection or hematoma Internal Medicine: Result - Labs CBC & Chem 7: 08/25/17 00:33 08/25/17 00:33 Labs: Short CBC 08/25/17 Range/Units 00:33 WBC 11.7 H (4.3-11.1) K/mcL Hgb 9.3 L D (11.5-15.4) g/dL Hct 28.5 L (35.3-44.9) % Plt Count 174 (140-400) K/mcL BMP 08/25/17 00:33 Sodium 135 L Potassium 2.9 L D Chloride 102 Carbon Dioxide 24 BUN 17 Creatinine 0.64 Glucose 127 H Calcium 7.9 L Cardiac Enzymes 08/24/17 08/25/17 08/25/17 Range/Units 18:35 00:33 06:37 Troponin I 0.11 H* 0.10 H* 0.07 H* (< 0.04) ng/mL Liver Function 08/25/17 Range/Units 00:33 Total Bilirubin 1.5 H (0.3-1.0) mg/dL AST 66 H (13-39) Units/L ALT 86 H (7-52) Units/L Alkaline Phosphatase 133 H (34-104) Units/L Albumin 2.8 L (3.5-5.7) g/dL - ABG Interpretation ABG results: PT/INR, D-dimer PT 12.2 Seconds (9.4-12.1) H 08/23/17 01:45 - Impressions Impressions Chest X-Ray 08/24/17 19:28 IMPRESSION: Suspect left basilar pulmonary nodule. Consider further evaluation with CT chest. D/ / Hugo Kaur MD / Hugo Kaur MD Interpreting Provider: Hugo Kaur MD Abdomen Ultrasound 08/25/17 08:00 IMPRESSION: Gallbladder is not visualized and may be surgically absent or collapsed. Common bile duct measures up to 9 mm which may be normal if there is history of cholecystectomy. If there is no history of cholecystectomy, consider MRI with MRCP for further evaluation. D/ / Kem Toure MD / Kem Toure MD Interpreting Provider: Kem Toure MD - VTE Documentation of Mechanical Device: Venous foot pump, device Consult Discharge Plan - Plan Referrals: NONE,PCP [Primary Care Provider] -
[2017-08-25] MEDS: *HR* HYDROcodone/Acet 5/325 mg TABLET PO PRN ×2 (10:54→23:11)
--- NOTE | 2017-08-25 12:09 | Cardiology Consult Note ---
Date of Encounter: 08/25/17 Time of Encounter: 12:08 Assessment and Plan (1) Elevated troponin Current Visit: Yes Status: Acute Troponins 0.11, 0.10, 0.07 in setting of acute post op blood loss anemia. HGB 9.3 today, was 13.3 on admission. Suspect demand ischemia, nondiagnostic for ACS. EKG on admission 08/23 SR. EKG yesterday 08/[address] changes. Pt reportedly had chest pain yesterday, but has dementia, oriented to person only and denies chest pain today when questioned. Pt is DNR CC. Limited echo has been ordered by primary team. Pt is not a candidate for invasive evaluation given her dementia and DNR CC status. Anticipate sign off once seen and evaluated by Dr. Regalado. (2) Hypokalemia Current Visit: Yes Status: Acute K 2.9--already replaced per primary team. Discussion w patient/family: The assessment and plan as outlined above was discussed with the patient and/or family members who expressed understanding and agreement. All questions were answered. Thank you for involving us in the care of your patient. Please call with any questions. I will discuss all the above with Dr. Regalado and make changes as necessary. History of Present Illness Consult date: 08/25/17 Requesting physician: Ganesh Hall Consult reason: elevated troponin Chief complaint: none History of present illness: Ms. HORNER is a 87 year old female with history of hypertension and dementia who presented from [facility] after a fall and was diagnosed with a right femoral head fracture. She is a resident of an [facility]. She has dementia, unable to provide history. She is only alert to self. Pt underwent right hip surgery 08/23/17, has post op blood loss anemia. HGB 9.3 today, was 13.3 on admission. Reportedly pt complained of chest pain yesterday and troponins were ordered--0.11, 0.10, 0.07. When questioned about chest pain today, pt denies ever having any, but again is confused. EKG nonspecific T wave changes yesterday compared to admission EKG on 08/23. Cardiology consulted for further recs. Past Med Surg Social Fam HX - Past Medical History Medical history: cancer, dementia, hypertension, thyroid disease Psychiatric history: no psych history - Social History Smoking Status: Never smoker Drug use: none - Family History Mother History Unknown: Yes Father History Unknown: Yes Medications and Allergies Acetaminophen [Tylenol] 650 mg PO Q6HR PRN 08/22/17 [History] DiphenhydraMINE [Benadryl] 25 mg PO HS 08/22/17 [History] Donepezil [Aricept] 10 mg PO HS 08/22/17 [History] Potassium Chloride [K-Tab ER] 20 meq PO QDPC 08/22/17 [History] Quetiapine Fumarate [SEROquel] 12.5 mg PO 1600 08/22/17 [History] Quetiapine Fumarate [SEROquel] 25 mg PO BID 08/22/17 [History] hydroCHLOROthiazide [Hydrochlorothiazide] 25 mg PO DAILY 08/22/17 [History] 3 Allergy/AdvReac Type Severity Reaction Status Date / Time divalproex sodium AdvReac See Verified 08/22/17 16:49 [From Depakote] Comments ROS unobtainable: due to mental status All Systems Review: The remainder of the systems were reviewed and are negative Physical Examination Vital Signs, Last 4 Hours Temp Pulse Resp BP Pulse Ox 08/25/17 09:55 98.2 F 73 16 131/58 94 Vital Signs Temp Pulse Resp BP Pulse Ox 08/25/17 09:55 98.2 F 73 16 131/58 94 08/25/17 07:45 95 08/25/17 06:51 98.5 F 76 16 128/73 95 08/25/17 03:38 98.3 F 83 14 123/72 94 08/24/17 23:59 99.9 F H 105 14 128/69 95 08/24/17 18:25 98.7 F 106 14 99/65 97 08/24/17 16:18 98.3 F 99 16 108/77 94 Intake and Output 08/24/17 08/25/17 08/25/17 23:59 07:59 15:59 Intake Total 100 / 100 1000 / 1000 Output Total 400 / 400 700 / 700 Balance -300 / -300 -700 / -700 1000 / 1000 Intake: IV Fluids 1000 / 1000 0.9 % Sodium Chloride 1,000 ML 1000 / 1000 @ 60 mls/hr IVC .[id number] [facility] Rx #:[id number] Oral 100 / 100 Output: Urine 400 / 400 700 / 700 Other: Meal Dinner Percent of Meal Consumed 10% General: Conversant, No Apparent Distress HEENT: Atraumatic, Normocephaly, Mucus Membranes Moist Neck: No JVD, Normal carotid pulses Cardiac: Reg Rate and Rhythm, Normal S1 and S2, No Murmur Lungs: Normal Breath Sounds, No Wheeze, Rales, Rhonchi Neuro: Other (confused) Abdomen: Soft, Non-Tender Skin: No rashes noted on visualized skin Musculoskeletal: Other (right hip pain) Extremities: No Clubbing, No Cyanosis, No Edema, Normal Pulses Results 08/25/17 00:33 08/25/17 00:33 Lab Results 08/24/17 08/25/17 08/25/17 18:35 00:33 00:33 WBC 11.7 H Hgb 9.3 L D Hct 28.5 L Plt Count 174 Sodium 135 L Potassium 2.9 L D Chloride 102 Carbon Dioxide 24 BUN 17 Creatinine 0.64 Glucose 127 H Calcium 7.9 L Total Bilirubin 1.5 H AST 66 H ALT 86 H Alkaline Phosphatase 133 H Troponin I 0.11 H* 08/25/17 08/25/17 00:33 06:37 WBC Hgb Hct Plt Count Sodium Potassium Chloride Carbon Dioxide BUN Creatinine Glucose Calcium Total Bilirubin AST ALT Alkaline Phosphatase Troponin I 0.10 H* 0.07 H* Short CBC 08/25/17 Range/Units 00:33 WBC 11.7 H (4.3-11.1) K/mcL Hgb 9.3 L D (11.5-15.4) g/dL Hct 28.5 L (35.3-44.9) % Plt Count 174 (140-400) K/mcL BMP 08/25/17 Range/Units 00:33 Sodium 135 L (136-145) mEq/L Potassium 2.9 L D (3.5-5.1) mEq/L Chloride 102 (98-107) mEq/L Carbon Dioxide 24 (23-29) mEq/L BUN 17 (8-23) mg/dL Creatinine 0.64 (0.60-1.20) mg/dL Glucose 127 H (70-105) mg/dL Calcium 7.9 L (8.6-10.3) mg/dL Cardiac Enzymes 08/25/17 08/25/17 08/24/17 Range/Units 06:37 00:33 18:35 Troponin I 0.07 H* 0.10 H* 0.11 H* (< 0.04) ng/mL Liver Function 08/25/17 Range/Units 00:33 Total Bilirubin 1.5 H (0.3-1.0) mg/dL AST 66 H (13-39) Units/L ALT 86 H (7-52) Units/L Alkaline Phosphatase 133 H (34-104) Units/L Albumin 2.8 L (3.5-5.7) g/dL Impressions Chest X-Ray 08/24/17 19:28 IMPRESSION: Suspect left basilar pulmonary nodule. Consider further evaluation with CT chest. D/ / Hugo Kaur MD / Hugo Kaur MD Interpreting Provider: Hugo Kaur MD Abdomen Ultrasound 08/25/17 08:00 IMPRESSION: Gallbladder is not visualized and may be surgically absent or collapsed. Common bile duct measures up to 9 mm which may be normal if there is history of cholecystectomy. If there is no history of cholecystectomy, consider MRI with MRCP for further evaluation. D/ / Kem Toure MD / Kem Toure MD Interpreting Provider: Kem Toure MD Active Medications Hydrocodone Bitart/Acetaminophen ([place] 5-325 Mg) 1 tab PO Q6HR PRN PRN Reason: Moderate Pain Stop: 02/21/18 21:42 Last Admin: 08/25/17 10:54 Dose: 1 tab Aspirin (Aspirin Ec) 325 mg PO BID MATT Stop: 02/22/18 21:01 Last Admin: 08/25/17 09:09 Dose: Not Given Diphenhydramine HCl (Benadryl) 25 mg PO HS MATT Stop: 02/22/18 21:01 Last Admin: 08/24/17 21:45 Dose: Not Given Donepezil HCl (Aricept) 10 mg PO HS MATT Stop: 02/22/18 21:01 Last Admin: 08/24/17 21:28 Dose: 10 mg Hydralazine HCl (Hydralazine) 10 mg IVP Q10MIN PRN; Protocol PRN Reason: Hypertension Stop: 02/22/18 16:38 Hydrochlorothiazide (Hydrochlorothiazide) 25 mg PO DAILY MATT PRN Reason: Protocol Stop: 02/22/18 09:01 Last Admin: 08/25/17 09:09 Dose: Not Given Sodium Chloride (0.9 % Sodium Chloride) 1,000 mls @ 60 mls/hr IVC .[id number] MATT Stop: 02/23/18 16:31 Last Admin: 08/25/17 09:07 Dose: 60 mls/hr Labetalol HCl (Labetalol) 5 mg IVP Q5MIN PRN; Protocol PRN Reason: PACU - Hypertension Stop: 02/22/18 16:38 Naloxone HCl (Narcan) 0.4 mg IVP Q2MIN PRN PRN Reason: SEE COMMENTS Stop: 02/21/18 21:41 Omeprazole (Prilosec) 40 mg PO DAILY@0630 MATT PRN Reason: Protocol Stop: 02/23/18 16:01 Last Admin: 08/25/17 03:41 Dose: Not Given Quetiapine Fumarate (Seroquel) 12.5 mg PO 1500 MATT PRN Reason: Protocol Stop: 02/22/18 15:01 Last Admin: 08/24/17 14:22 Dose: 12.5 mg Quetiapine Fumarate (Seroquel) 25 mg PO BID MATT PRN Reason: Protocol Stop: 02/22/18 09:01 Last Admin: 08/25/17 09:09 Dose: Not Given - EKG Interpretation EKG results cardiology: personally reviewed Consult Discharge Plan - Plan Referrals: NONE,PCP [Primary Care Provider] -
[2017-08-25 14:55] LABS: Bilirubin,Urine Negative (Negative); Blood,Urine Small (Negative); Clarity,Urine Clear (Clear); Color,Urine Yellow (Yellow); Glucose,Urine (UA) Normal (Normal); Ketones,Urine Negative (Negative); Leukocyte Esterase,Urine Small (Negative); Nitrite,Urine Negative (Negative); Protein,Urine Negative (Neg-Trace); Specific Gravity,Urine 1.009 (1.010-1.025); Urobilinogen,Urine Normal (Normal)
[2017-08-25 15:29] LABS: Bacteria,Urine Few per hpf (None-Few); RBC,Urine 0-3 per hpf (0-3); Squamous Epithelial Cell,Urine Few per lpf (None-Few)
[2017-08-25 20:16] LABS: Hematocrit 24.1 % (35.3-44.9)
--- NOTE | 2017-08-25 20:32 | Orthopedics Progress Note ---
Date of Encounter: 08/25/17 Time of Encounter: 07:00 - Assessment and Plan (1) Femoral fracture Current Visit: Yes Status: Acute Qualifiers: Encounter type: subsequent encounter Femur location: head Fracture type: closed Laterality: right Fracture healing: with routine healing Qualified Code(s): S72.051D - Unspecified fracture of head of right femur, subsequent encounter for closed fracture with routine healing Subjective Interval history: S: Resting in bed comfortably O: AFVSS Dementia Incision is C/D/I Mild pain with hip PROM Flexes and extends the toes X-rays show good position of the hip venkat A: Post Right hip venkat P: Continue postop care Orthopedically stable for discharge Objective Vital signs: Vital Signs Temp Pulse Resp BP Pulse Ox 08/25/17 18:26 100.5 F H 116 14 129/77 93 08/25/17 14:38 98.7 F 78 16 126/54 95 08/25/17 09:55 98.2 F 73 16 131/58 94 08/25/17 07:45 95 08/25/17 06:51 98.5 F 76 16 128/73 95 08/25/17 03:38 98.3 F 83 14 123/72 94 08/24/17 23:59 99.9 F H 105 14 128/69 95 Intake and Output 08/25/17 08/25/17 08/25/17 07:59 15:59 23:59 Intake Total 1000 / 1000 Output Total 700 / 700 350 / 350 Balance -700 / -700 650 / 650 Intake: IV Fluids 1000 / 1000 0.9 % Sodium Chloride 1,000 ML 1000 / 1000 @ 60 mls/hr IVC .[id number] [facility] Rx #:[id number] Oral 0 / 0 Output: Urine 700 / 700 350 / 350 Other: # Urine Diapers 1 1 - Labs CBC & BMP: 08/25/17 20:04 08/25/17 00:33 Labs: Abnormal lab results WBC 11.7 K/mcL (4.3-11.1) H 08/25/17 00:33 RBC 3.19 M/mcL (3.82-4.97) L 08/25/17 00:33 Hgb 8.0 g/dL (11.5-15.4) L 08/25/17 20:04 Hct 24.1 % (35.3-44.9) L 08/25/17 20:04 PT 12.2 Seconds (9.4-12.1) H 08/23/17 01:45 Sodium 135 mEq/L (136-145) L 08/25/17 00:33 Potassium 2.9 mEq/L (3.5-5.1) L D 08/25/17 00:33 BUN/Creatinine Ratio 27 (6-26) H 08/25/17 00:33 Glucose 127 mg/dL (70-105) H 08/25/17 00:33 Calcium 7.9 mg/dL (8.6-10.3) L 08/25/17 00:33 Total Bilirubin 1.5 mg/dL (0.3-1.0) H 08/25/17 00:33 AST 66 Units/L (13-39) H 08/25/17 00:33 ALT 86 Units/L (7-52) H 08/25/17 00:33 Alkaline Phosphatase 133 Units/L (34-104) H 08/25/17 00:33 Troponin I 0.07 ng/mL (< 0.04) H* 08/25/17 06:37 Serum Total Protein 5.2 g/dL (6.4-8.9) L 08/25/17 00:33 Albumin 2.8 g/dL (3.5-5.7) L 08/25/17 00:33 Ur Specific [place] 1.009 (1.010-1.025) L 08/25/17 14:20 Urine Blood Small (Negative) H 08/25/17 14:20 Ur Leukocyte Esterase Small (Negative) H 08/25/17 14:20 Urine Microscopic WBC 3-5 per hpf (0-3) H 08/25/17 14:20 Ur Culture Indicated? YES (NO) A 08/25/17 14:20 - VTE Documentation of Mechanical Device: Venous foot pump, device Consult Discharge Plan - Plan Additional Instructions: DISCHARGE INSTRUCTIONS Dr. Zepeda Total Hip Replacement/Hip Hemiarthroplasty Wound Care -Keep wound / incision area clean and dry. -Dressing daily with dry gauze and paper tape. -No baths or swimming until otherwise instructed. -After 14 days, you may begin to shower only if no drainage is present. No submerging the wound under standing water until cleared by your physician (no baths, hot tubs, swimming pools, etc). Sponge baths are the best way to perform personal hygiene while at the same time protecting the wound from moisture. -No scrubbing the wound. You may "pad dry" the wound, but do not rub, as this may open up he wound and pre-dispose to wound infection. -Do not apply lotions or creams to incision site, unless instructed otherwise. -Observe for redness, swelling, or drainage. Please call the clinic immediately if you have fevers, chills with warmth/redness surrounding wound site or if you notice pus drainage from the wound site Activity -No heavy lifting objects greater than 10 pounds. -No driving while on narcotic pain medication. -You may be weight-bear as tolerated on both of your lower extremities. -Use crutches or a walker for ambulation. -Posterior hip precautions for 6 weeks: No bending the hip past 90 degrees. Do not allow the leg to cross the midline of your body (adduction). No twisting motions. Ask your physical therapist to review these precautions with you. Reducing the Risk of Blood Clots -You will need to complete a total 4 week course of enteric coated aspirin 325 mg twice daily. -Wear knee high compression hose 23 hours per day. Follow-Up -Follow-up with Dr. Zepeda office in 2 weeks from the surgery date for a post- operative evaluation. -Call the office at [phone] to schedule or confirm your appointment. -Follow up with your primary care physician to discuss testing for bone mineral density. Referrals: NONE,PCP [Primary Care Provider] -
--- NOTE | 2017-08-26 05:27 | Electrocardiograph Report ---
[place] [id number] Test Date: 2017-08-24 Pat Name: PRIYA HORNER Department: 114 Room: [facility] Gender: F Line Decorator: GABRIELLE : 1930 Requested By: Ganesh Hall Order Number: [id number] Reading MD: Fabrice Navraez Measurements Intervals [place] Rate: 105 P: 69 SC: 145 QRS: 16 QRSD: 98 T: 93 QT: 291 QTc: 352 Interpretive Statements SINUS TACHYCARDIA NONSPECIFIC ST & T-WAVE ABNORMALITY Electronically Signed On 08-26-2017 5:25:28 EDT by Fabrice Narvaze
[2017-08-26] MEDS: Aspirin Enteric Coated 325 MG Tablet PO SCH (08:31)
[2017-08-26 08:33] LABS: Hematocrit 24.6 % (35.3-44.9); Mean Corpuscular HGB Conc 32.5 g/dL (31.6-35.5); Mean Corpuscular Hemoglobin 29.7 pg (28.0-33.3); Mean Corpuscular Volume 91.4 fL (83.0-100.0); Mean Platelet Volume 10.2 fL (9.4-12.4); Platelet Count 165 K/mcL (140-400); Red Blood Count 2.69 M/mcL (3.82-4.97); Red Cell Distribution Width 13.2 % (11.5-14.5)
[2017-08-26] MEDS ORDERED: Cefdinir 300 MG CAPSULE PO SCH (09:15)
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
--- NOTE | 2017-08-26 09:27 | Physician Discharge Referral ---
ExtendedCare Referral Info Provider in Charge after Transfer: PCP Institutional Level of Care: Skilled - Diagnosis (1) Acute blood loss as cause of postoperative anemia Status: Acute (2) Femoral fracture Status: Acute (3) Dementia Status: Acute (4) Hypertension Status: Acute (5) DVT prophylaxis Status: Acute (6) Transaminitis Status: Acute (7) Hypokalemia Status: Acute - Transfer Medications Prescriptions: HYDROcodone/Acet 5/325 mg [[place] 5-325 mg] 1 tab PO Q6HR PRN 5 Days #20 tablet PRN Reason: Moderate Pain Cefdinir [Omnicef] 300 mg PO BID #9 capsule Lisinopril [Zestril] 5 mg PO DAILY #30 tablet Home Medications: Acetaminophen [Tylenol] 650 mg PO Q6HR PRN 08/22/17 [History] DiphenhydraMINE [Benadryl] 25 mg PO HS 08/22/17 [History] Donepezil [Aricept] 10 mg PO HS 08/22/17 [History] Quetiapine Fumarate [Seroquel] 12.5 mg PO 1600 08/22/17 [History] Quetiapine Fumarate [Seroquel] 25 mg PO BID 08/22/17 [History] Aspirin Enteric Coated [Aspirin EC] 325 mg PO BID 26 Days #0 tablet. 08/26/17 [Rx] Cefdinir [Omnicef] 300 mg PO BID #9 capsule 08/26/17 [Rx] HYDROcodone/Acet 5/325 mg [[place] 5-325 mg] 1 tab PO Q6HR PRN 5 Days #20 tablet 08/26/17 [Rx] Lisinopril [Zestril] 5 mg PO DAILY #30 tablet 08/26/17 [Rx] Omeprazole [PriLOSEC] 40 mg PO DAILY@0630 capsule. 08/26/17 [Rx] Allergies/Adverse Reactions: 3 Allergy/AdvReac Type Severity Reaction Status Date / Time divalproex sodium AdvReac See Verified 08/22/17 16:49 [From Depakote] Comments - Respiratory Orders Smoking Cessation: Smoking cessation has been advised. For more information, call the [place] Tobacco Quit Line at 4-915-TBJF-NOW. - Advance Directives Code Status: DNR-Comfort Care - Diet Orders No Added Salt (PARRISH) House Supplement per Dietary: Follow-up with primary care physician as needed. Complete 5 more days of cefdinir. Continue omeprazole. Stop hydrochlorothiazide and start lisinopril CERTIFICATION: I certify that the transfer of the above named patient to an Extended Care Facility is necessary for the continuing treatment of the diagnosis listed. The above information is true and accurate reflection of patient's current condition. Confidential - Redisclosure prohibited without a patient's written consent.
[2017-08-26 09:30] LABS: BUN/Creatinine Ratio 21 (6-26); Blood Urea Nitrogen 11 mg/dL (8-23); Calcium 8.1 mg/dL (8.6-10.3); Carbon Dioxide 24 mEq/L (23-29); Chloride 110 mEq/L (98-107); Glucose 103 mg/dL (70-105); Osmolality,Calculated 292 (280-300); Potassium 3.8 mEq/L (3.5-5.1); Sodium 141 mEq/L (136-145); eGFR For African Americans > 60 (> 60); eGFR For Non-African Americans > 60 (> 60)
[2017-08-26] MEDS ORDERED: 0.9 % Sodium Chloride 250 ML ONE (12:46)
[2017-08-26 13:45] VITALS: BP 122/68
[2017-08-26 18:01] LABS: Hematocrit 32.8 % (35.3-44.9)
[2017-08-26 18:03] LABS: Hemoglobin 10.3 g/dL (11.5-15.4)
== END 2017-08-26 18:43 | DRG 470 ==
LOC: 3NENU 16:07 → SUATTDRO 16:07
PROVIDERS: ADMIT Internal Medicine; ATTEND Internal Medicine